=== PATIENT | male | born 1960 | race Caucasian/White ===

== ENCOUNTER 2016-07-04 12:09 | Emergency (ER) | payer OTHER, BC ==
--- NOTE | 2016-07-04 12:17 | PDOC ---
History of Present Illness - General History Source: Patient <Jarett Nelson - Last Filed: 07/04/16 13:40> - General History Source: Patient Exam Limitations: No Limitations - History of Present Illness Initial Comments: 07/04/16 15:22 The patient is a 55 year old male, with no significant past medical history who presents to the emergency department with right foot injury. The patient reports being on vacation in [facility] when he bumped his right foot on a rock. He reports since the injury having pain and redness on his right toes. He denies chest pain and shortness of breath. He denies fever, chills, headache and dizziness. He denies nausea, vomit, diarrhea and constipation. Allergies: NKDA. Social History: denies drug use. <Sundar Ramirez - Last Filed: 07/04/16 15:26> - General Stated Complaint: FOOT INJURY Time Seen by Provider: 07/04/16 12:11 Past History - Past Medical History HTN: Yes Hypercholesterolemia: Yes - Psycho/Social/Smoking Cessation Hx Anxiety: No Suicidal Ideation: No Smoking Status: Yes Smoking History: Current every day smoker Have you smoked in the past 12 months: Yes Number of Cigarettes Smoked Daily: 10 'Breaking Loose' booklet given: 04/19/14 Hx Alcohol Use: Yes (social) <Jarett Nelson - Last Filed: 07/04/16 13:40> <Sundar Ramirez - Last Filed: 07/04/16 15:26> - Past Medical History Allergies/Adverse Reactions: Allergies Allergy/AdvReac Type Severity Reaction Status Date / Time No Known Allergies Allergy Verified 04/19/14 09:02 Home Medications: Ambulatory Orders Rosuvastatin Calcium [Crestor] 10 mg PO DAILY 02/05/13 Olmesartan Medoxomil [Benicar -] 10 mg PO DAILY 02/28/14 "Water Pill" 1 tab PO DAILY 04/19/14 Colchicine [Colcrys -] 0.6 mg PO DAILY #7 tablet 04/19/14 Review of Systems - Review of Systems Constitutional: No: Chills, Fever, Weakness HEENTM: Yes: See HPI Respiratory: No: Shortness of Breath, Wheezing, Productive cough, Hemoptysis Cardiac (ROS): No: Chest Pain, Edema, Irregular Heart Rate, Lightheadedness, Palpitations ABD/GI: No: Abdominal Distended, Constipated, Diarrhea, Difficulty Swallowing, Nausea : No: Burning, Dysuria, Discharge, Frequency, Flank Pain Musculoskeletal: Yes: Other (Right pain at toes.). No: Back Pain, Gout, Neck Pain Neurological: No: Headache, Numbness, Tingling, Tremors, Weakness Psychiatric: No: Anxiety, Depression <Sundar Ramirez - Last Filed: 07/04/16 15:26> *Physical Exam - Vital Signs Last Vital Signs Temp Pulse Resp BP Pulse Ox 97.7 F 76 16 136/80 100 07/04/16 12:07/04/16 12:07/04/16 12:07/04/16 12:07/04/16 12:26 - Physical Exam General Appearance: Yes: Nourished, Appropriately Dressed. No: Apparent Distress HEENT: positive: EOMI, LINDSAY, Normal ENT Inspection, Normal Voice, Symmetrical, TMs Normal, Pharynx Normal Neck: positive: Normal Thyroid, Supple. negative: Tender Respiratory/Chest: positive: Lungs Clear, Normal Breath Sounds. negative: Chest Tender, Respiratory Distress, Accessory Muscle Use Cardiovascular: positive: Regular Rhythm, Regular Rate Gastrointestinal/Abdominal: positive: Normal Bowel Sounds, Flat, Soft. negative : Tender, Organomegaly, Pulsatile Mass Musculoskeletal: positive: Normal Inspection. negative: CVA Tenderness Extremity: positive: Normal Capillary Refill, Normal Range of Motion, Tender ( Mild to moderate swelling on the dorsal aspect of the toes 2-4. ) Integumentary: positive: Normal Color, Dry, Warm Neurologic: positive: reconciler II-XII NML intact, Fully Oriented, Alert, Normal Mood/ Affect, Normal Response, Motor Strength 5/5 <Sundar Ramirez - Last Filed: 07/04/16 15:26> ED Treatment Course - RADIOLOGY Radiograph Interpretation: 07/04/16 15:26 I have reviewed the X-rays of the patient's right foot: Normal study. <Sundar Ramirez - Last Filed: 07/04/16 15:26> Medical Decision Making - Medical Decision Making 07/04/16 15:25 Wrapped the patient's right foot with antibiotic cream, was advised to soak his feet in water before bed. Discharged home. <Sundar Ramirez - Last Filed: 07/04/16 15:26> *DC/Admit/Observation/Transfer - Discharge Dispostion Admit: No <Jarett Nelson - Last Filed: 07/04/16 13:40> - Attestations Scribe Attestion: 07/04/16 15:26 Documentation prepared by Sundar Ramirez, acting as medical bill processor for Jarett Nelson MD. <Sundar Ramirez - Last Filed: 07/04/16 15:26> Diagnosis at time of Disposition: Contusion, foot Qualifiers: Encounter type: initial encounter Laterality: right Qualified Code(s): S90.31XA - Contusion of right foot, initial encounter - Patient Instructions Printed Discharge Instructions: DI for Foot Pain Additional Instructions: clean and dry, daily antibiotic cream , cover with gauze
[2016-07-04 12:28] VITALS: BP 136/80; PULSE 76; TEMP 97.7; BMI 27.6
== END 2016-07-04 13:52 | disposition home or self-care (01) ==
LOC: FER 12:09
DX: S90.31XA Contusion of right foot, initial encounter (principal); W22.8XXA Striking against or struck by other objects, initial encounter; Y93.9 Activity, unspecified; Y92.89 Other specified places as the place of occurrence of the external cause; I10 Essential (primary) hypertension; E78.00 Pure hypercholesterolemia, unspecified; F17.210 Nicotine dependence, cigarettes, uncomplicated
CPT/HCPCS: 73630-TC-RT; 99282-25

== ENCOUNTER 2018-01-15 11:03 | Emergency (ER) | payer OTHER, BC ==
[2018-01-15 11:43] VITALS: BP 150/95; PULSE 61; TEMP 97.8; BMI 29.2
--- NOTE | 2018-01-15 11:44 | PDOC ---
Attending Attestation - Resident Resident Name: Renan Thomson - ED Attending Attestation I have performed the following: I have examined & evaluated the patient, The case was reviewed & discussed with the resident, I agree w/resident's findings & plan, Exceptions are as noted - HPI HPI: 01/15/18 11:35 57yo M hx migraines, sinusitis presents with intermittent headache for 3 weeks. Headache worse later in the day, get better when he sleeps. HEadache is R temporal in distribution. Denies fevers, visual loss, ataxia, weakness or numbness. Pt saw ENT Dr. Cruz 2 weeks ago and was prescribed sudafed and augmentin.Took augmentin for 5 days (incomplete course) and stopped because he felt better. +photobia, phonophobia. States perez feels like his usual migraines but doesnt usually last on and off for 3 weeks. Took aleve yesterday with improvement. Presents today because his headache usually improves with a shower but did not today. Denies fevers, chills, stiff neck, cp, sob, abd pain, rashes. Denies recent travel. - Physicial Exam PE: 01/15/18 11:40 GENERAL: Awake, alert, and fully oriented, in no acute distress HEAD: No signs of trauma EYES: PERRLA, EOMI, sclera anicteric, conjunctiva clear ENT: Auricles normal inspection, hearing grossly normal, nares patent, oropharynx clear without exudates. Moist mucosa NECK: Normal ROM, supple, no lymphadenopathy, JVD, or masses LUNGS: Breath sounds equal, clear to auscultation bilaterally. No wheezes, and no crackles HEART: Regular rate and rhythm, normal S1 and S2, no murmurs, rubs or gallops ABDOMEN: Soft, nontender, normoactive bowel sounds. No guarding, no rebound. No masses EXTREMITIES: Normal range of motion, no edema. No clubbing or cyanosis. No cords, erythema, or tenderness NEUROLOGICAL: Normal speech, cranial nerves intact, negative pronator drift, 5/ 5 strength in all 4 extremities, normal sensation to light touch in all 4 extremities, normal cerebellar exam, normal gait, normal reflexes and tone SKIN: Warm, Dry, normal turgor, no rashes or lesions noted. - Medical Decision Making 01/15/18 11:44 57yo M hx migraines presents to the ED with intermittent migraine for 3 weeks. Vitals wnl. Exm wnl, pt is neuro intact. Likely migraine vs sinusitis. Will treat with IVF, toradol, reglan and reassess. No need for imaging at this time as pt is neuro intact and has had headache for 3 weeks. Pt already on tx with augmentin for sinusitis. WIll switch to azithro. 01/15/18 13:34 Pt feels better with IVF, toradol, reglan. Requests DC home Pt to f/u with neuro/ent Switched augmentin to azithro Stable for DC home I discussed the physical exam findings, ancillary test results and final diagnoses with the patient. I answered all of the patient's questions. The patient was satisfied with the care received and felt comfortable with the discharge plan and treatment plan. The patient will call their primary care physician within 24 hours to arrange follow-up and will return to the Emergency Department with any new, persistent or worsening symptoms.
[2018-01-15] MEDS ORDERED: KETOROLAC TROMETHAMINE 15 MG/ML VIAL IVPUSH ONE (11:50)
[2018-01-15] MEDS ORDERED: METOCLOPRAMIDE HCL INJECTION 10 MG/2 ML VIAL IVPUSH ONE (11:50)
[2018-01-15] MEDS ORDERED: SODIUM CHLORIDE 1,000 ML IV STA (11:50)
--- NOTE | 2018-01-15 11:59 | PDOC ---
History of Present Illness - General Chief Complaint: Headache Stated Complaint: HEADACHE Time Seen by Provider: 01/15/18 11:05 History Source: Patient Exam Limitations: No Limitations Past History - Past Medical History Allergies/Adverse Reactions: Allergies Allergy/AdvReac Type Severity Reaction Status Date / Time No Known Allergies Allergy Verified 01/15/18 11:38 Home Medications: Ambulatory Orders Rosuvastatin Calcium [Crestor] 10 mg PO DAILY 02/05/13 Olmesartan Medoxomil [Benicar -] 10 mg PO DAILY 02/28/14 Amoxicillin/Potassium Clav [Augmentin 875-125 Tablet] 1 each PO BID 01/15/18 Azithromycin [Zithromax 250mg Tablets -] 250 mg PO UTDICT #6 tab 01/15/18 Hydrochlorothiazide [Hctz -] 25 mg PO DAILY 01/15/18 Naproxen 500 mg PO BID PRN #10 tablet 01/15/18 Pseudoephedrine HCl [Sudafed] 30 mg PO BID 01/15/18 COPD: No HTN: Yes Hypercholesterolemia: Yes Other medical history: GOUT - Suicide/Smoking/Psychosocial Hx Smoking Status: Yes Smoking History: Current every day smoker Have you smoked in the past 12 months: Yes Number of Cigarettes Smoked Daily: 10 Information on smoking cessation initiated: Yes 'Breaking Loose' booklet given: 01/15/18 Hx Alcohol Use: Yes Drug/Substance Use Hx: No Substance Use Type: None *Physical Exam - Vital Signs Last Vital Signs Temp Pulse Resp BP Pulse Ox 97.8 F 61 16 150/95 100 01/15/18 11:04 01/15/18 11:04 01/15/18 11:04 01/15/18 11:04 01/15/18 11:04 *DC/Admit/Observation/Transfer Diagnosis at time of Disposition: Headache Qualifiers: Headache type: unspecified Headache chronicity pattern: unspecified pattern Intractability: not intractable Qualified Code(s): R51 - Headache - Discharge Dispostion Disposition: HOME Decision to Admit order: No - Prescriptions Prescriptions: Azithromycin [Zithromax 250mg Tablets -] 250 mg PO UTDICT #6 tab Naproxen 500 mg PO BID PRN #10 tablet PRN Reason: Pain - Referrals Referrals: Pierre Cooley MD [Primary Care Provider] - Fadia Shaver MD [Staff Physician] - Manuel Chan MD [Staff Physician] - - Patient Instructions Printed Discharge Instructions: Serious Ways to Stop Smoking, DI for Sinusitis , DI for Headache Additional Instructions: You have been diagnosed with a headache. Please follow up with your primary care doctor within 24 hours after discharge. In addition, you have been provided a referral back to your ENT physician, Dr. Chan as well as Dr. Shaver (neurologist within 1 week). Return to the emergency department if symptoms persist, worsen, or new concerning symptoms arise. Please take the antibiotics as directed and finish the course. - Post Discharge Activity
[2018-01-15] MEDS ORDERED: KETOROLAC TROMETHAMINE 15 MG/ML VIAL ONE (12:13)
== END 2018-01-15 13:43 | disposition home or self-care (01) ==
LOC: FER 11:03
PROC: 3E0333Z Introduction of Anti-inflammatory into Peripheral Vein, Percutaneous Approach (ICD-10-PCS; principal; 2018-01-15)
PROC: 3E033GC Introduction of Other Therapeutic Substance into Peripheral Vein, Percutaneous Approach (ICD-10-PCS; 2018-01-15)
PROC: 3E0337Z Introduction of Electrolytic and Water Balance Substance into Peripheral Vein, Percutaneous Approach (ICD-10-PCS; 2018-01-15)
DX: R51 Headache (principal); I10 Essential (primary) hypertension; E78.00 Pure hypercholesterolemia, unspecified; M10.9 Gout, unspecified; F17.210 Nicotine dependence, cigarettes, uncomplicated
CPT/HCPCS: 96361; 96374; 96375; 99282-25; J7030